=== PATIENT | female | born 1995 | race Caucasian/White ===

== ENCOUNTER → 2017-07-01 | Outpatient (CLI) | payer OTHER | END | disposition home or self-care (01) | LOC: C.RDSM 13:01 | PROVIDERS: ATTEND Orthopaedic Surgery | DX: M25.562 Pain in left knee (principal) ==

== ENCOUNTER → 2017-07-12 | Outpatient (CLI) | payer OTHER ==
--- NOTE | 2017-07-12 08:50 | DIAGNOSTIC IMAGING REPORT ---
LEFT KNEE MRI HISTORY: L KNEE ACUTE MEDIAL TEAR COMPARISON STUDY: Left knee 07/01/2017. TECHNIQUE: Multiplanar multisequence MRI of the left knee was performed according to standard department protocol without the use of contrast. FINDINGS: Menisci: Small focus of abnormal signal at the periphery of the junction of the body/posterior horn of the medial meniscus. This is best seen on coronal image 20 and sagittal image 5. This is consistent with a small peripheral tear. The lateral meniscus is intact. Ligaments: The anterior and posterior cruciate ligaments are intact. The medial and lateral collateral ligaments are normal in appearance. Extensor mechanism: The quadriceps tendon and patellar ligament are intact. Articular cartilage and bone: The articular cartilage is intact, and normal marrow signal intensity is seen throughout the imaged osseous structures. Joint effusion: None. Soft tissues: Subcentimeter popliteal cyst. IMPRESSION: Small peripheral tear at the junction of the body/posterior horn of the medial meniscus. Electronically signed by: Carlos Helms M.D. 07/12/2017 8:49 AM Dictated Date/Time: 07/12/2017 8:40 AM
== END | disposition home or self-care (01) ==
LOC: C.MRI 07:48
PROVIDERS: ATTEND Orthopaedic Surgery
DX: S83.249A Other tear of medial meniscus, current injury, unspecified knee, initial encounter (principal); X58.XXXA Exposure to other specified factors, initial encounter